=== PATIENT | female | born 1990 | race African-American/Black ===

== ENCOUNTER 2018-06-02 10:11 | Emergency (ER) | payer BC ==
[~2018-06-02] VITALS: Ht 162.6 cm; Wt 54.4 kg
[2018-06-02] MEDS ORDERED: ALBUTEROL SULFATE 2.5 MG/3 ML NEBU NEB ONE (10:30)
[2018-06-02] MEDS ORDERED: ALBUTEROL SULFATE 2.5 MG/3 ML NEBU ONE (10:31)
--- NOTE | 2018-06-02 11:24 | NUR ---
Patient discharged to home in stable conditon. Written and verbal after care instructions given. Patient verbalizes understanding of instructions.pt walks in steady gait. no sign of distress. pt says feels better. eubreathing.
== END 2018-06-02 11:26 | disposition home or self-care (01) ==
LOC: ER 10:11
DX: J20.9 Acute bronchitis, unspecified (principal); J45.909 Unspecified asthma, uncomplicated; Z90.49 Acquired absence of other specified parts of digestive tract
CPT/HCPCS: 71046; A4663